=== PATIENT | female | born 1940 | race Caucasian/White ===

== ENCOUNTER 2020-12-14 12:04 | Emergency (ER) | payer MEDICARE, OTHER, SELFPAY ==
[2020-12-14] VITALS (7 sets, daily range): BP systolic 123–168; BP diastolic 71–76; PULSE 68–81; RESP 18–33; TEMP 36.8; O2SAT 83–97; BMI 34.3
--- NOTE | 2020-12-14 12:07 | ED_ITS ---
HPI - SOB/Dyspnea General Chief Complaint: Arrhythmia/Palpitations Stated Complaint: a-fib, sent by nick niño fatigue Time Seen by Provider: 12/14/20 12:07 Source: patient and family Mode of arrival: Ambulatory Limitations: no limitations History of Present Illness HPI Narrative: 80-year-old female nonsmoker with history of relatively recently diagnosed atrial fibrillation was placed on Xarelto about 10 days ago per her guide delegate. She presents today with a chief complaint of palpitations and increasing shortness of breath with minimal exertion. She does not use oxygen at home but states that over the past few days she has become profoundly short of breath with minimal exertion. She denies pain nor dizziness or lightheadedness. She denies any significant lower extremity swelling. She denies any obvious orthopnea. She has had no runny nose or sore throat. She denies any other medication or dietary change. She has had no fever or chills MD Complaint: shortness of breath Onset (ago): day(s) Severity: severe Consistency/Duration: progressively worsening Relieving factors: rest Exacerbating factors: exertion Associated symptoms: denies other symptoms Treatment prior to arrival: none Related Data Home oxygen amount: none Home Medications Medication Instructions Recorded Confirmed aspirin #0 04/21/17 atorvastatin [Lipitor] #0 04/21/17 flecainide 25 mg #0 04/21/17 levothyroxine [Synthroid] #0 04/21/17 losartan #0 04/21/17 magnesium amino acid chelate #0 04/21/17 metoprolol ta-hydrochlorothiaz #0 04/21/17 [Lopressor HCT] omeprazole #0 04/21/17 sumatriptan [Imitrex] #0 04/21/17 Allergies Allergy/AdvReac Type Severity Reaction Status Date / Time codeine [CODEINE] Allergy Unknown Verified 12/14/20 12:25 Review of Systems Constitutional Constitutional: Denies chills, Denies fatigue, Denies fever(s), Denies frequent falls, Denies lethargy and Denies weakness Eyes Eyes: Denies change in vision, Denies eye discharge, Denies irritation and Denies loss of vision ENT Ears, Nose, Mouth, and Throat: Denies change in voice, Denies dizziness, Denies neck pain, Denies sore throat and Denies throat swelling Cardiovascular Cardiovascular: Denies chest pain, Denies irregular heart rhythm, Denies lightheadedness, Denies palpitations, Reports dyspnea, Reports dyspnea on exertion and Denies orthopnea Respiratory Respiratory: Denies cough, Reports dyspnea, Reports dyspnea on exertion and Denies wheezing Gastrointestinal Gastrointestinal: Denies abdominal pain, Denies change in bowel habits, Denies diarrhea, Denies nausea and Denies vomiting Musculoskeletal Musculoskeletal: Denies neck pain and Denies numbness Integumentary/Breasts Skin/Breast: Denies pruritus, Denies erythema, Denies rash and Denies wounds Neurologic Neurologic: Denies behavioral changes, Denies confusion, Denies dizziness, Denies frequent falls, Denies loss of vision, Denies numbness and Denies weakness Psychiatric Psychiatric: Denies anxiety, Denies behavioral changes, Denies confusion, Denies depression, Denies homicidal ideation and Denies suicidal ideation Endocrine Endocrine: Denies fatigue, Denies flushing and Denies palpitations Hematologic/Lymphatic Hematologic/Lymphatic: Denies easy bruising Allergic/Immunologic Allergic/Immunologic: Denies urticaria, Denies throat swelling and Denies wheezing Patient History Social History Smoking Status: Never smoker Smoking Status: Never smoker alcohol intake frequency: 0-2 drinks per day Substance Use Type: does not use Exam Narrative Exam Narrative: GENERAL: [80] year old patient appears stated age. Well- nourished, well-developed patient, in mild distress. HEAD: Atraumatic. Normocephalic. EYES: Pupils equal round and reactive. Extraocular motions intact. No scleral icterus. No injection or drainage. ENT: Nose without bleeding, purulent drainage. Throat without erythema, tonsillar hypertrophy or exudate. Airway patent. NECK: Trachea midline. Non tender CARDIOVASCULAR: Regular rate and rhythm without murmurs, gallops, or rubs. RESPIRATORY: Faint crackles bilaterally, significant work of breathing with exertion, resolves after some time at rest. GASTROINTESTINAL: Abdomen soft, non-tender, nondistended. EXTREMITIES: No edema or joint tenderness. BACK: Nontender without deformity or crepitance. No flank tenderness. NEURO: AOx3. SKIN: No rash or erythema of visible areas Initial Vital Signs Initial Vital Signs: Vital Signs Temperature 98.3 F 12/14/20 12:15 Pulse Rate 72 12/14/20 12:15 Respiratory Rate 18 12/14/20 12:15 Blood Pressure 123/71 12/14/20 12:15 Pulse Oximetry 97 12/14/20 12:15 Course Orders Ordered: ED Orders 12/14/20 12:15 Basic Metabolic Panel Stat Complete Blood Count AUTO DIFF Stat D Dimer Stat Lactate (Lactic Acid) Stat Magnesium Stat NT-proBNP (BNP-Adult 18+) Stat Procalcitonin Stat Prothrombin Time INR Stat Troponin & CK Cardiac Panel Stat 12/14/20 12:16 Consult to Respiratory Therapy Evaluate & Treat EKG-12 Lead Stat 12/14/20 13:14 XR chest 2V Stat 12/14/20 15:15 COVID19 -Nasal swab/Pre-Proc Stat Discontinued Medications Furosemide (Furosemide 40 Mg/4 Ml Vial) 40 mg IV NOW ONE Stop: 12/14/20 13:52 Last Admin: 12/14/20 15:21 Dose: 40 mg Documented by: IBIS Reevaluation(s) Reevaluation #1: Minimal exertion causes patient to become visibly short of breath with significant work of breathing and pulse ox that drops to the low 80s with subsequent tachypnea and tachycardia. She improves after some time with rest Consultations Consultation #1: Discussion with Cardiology. We sure the opinion that she is not appropriate for cardioversion given lack of ischemic EKG changes, chest pain and duration of anticoagulation. Given the severity of her shortness of breath he recommends transferring the patient to [facility] where she can obtain appropriate diuresis and more importantly a JULIET to allow safe cardioversion as this patient is clearly intolerance of her condition. Consultation #2: hospitalist happy to accept at [facility] after discussion of patient presenting history, exam, labs and need for diagnostics not available at our facility Vital Signs Vital signs: Vital Signs - 8 hr 12/14/20 12:15 12/14/20 14:01 12/14/20 14:30 Temperature 98.3 F Pulse Rate 72 69 68 Respiratory Rate 18 22 24 Blood Pressure 123/71 Pulse Oximetry 97 96 93 12/14/20 15:00 12/14/20 15:09 12/14/20 15:30 Temperature Pulse Rate 69 71 71 Respiratory Rate 26 H 33 H 23 Blood Pressure 168/76 H Pulse Oximetry 83 L 91 94 12/14/20 16:00 Temperature Pulse Rate 81 Respiratory Rate 32 H Blood Pressure Pulse Oximetry 95 MDM - SOB/Dyspnea Lab Data Result diagrams: 12/14/20 12:15 12/14/20 12:15 Labs: Lab Results 12/14/20 12/14/20 12/14/20 Range/Units 12:15 12:15 12:15 WBC 8.1 (4.5-11.0) X10^3/uL RBC 4.07 (4.0-5.2) X10^6/uL Hgb 12.2 (12.0-16.0) g/dL Hct 36.5 (36-46) % MCV 89.9 (80-100) fL MCH 29.9 (26-34) PG MCHC 33.3 (30-36) % RDW 14.3 (11.6-14.8) % Plt Count 255 (150-400) X10^3/uL Neut % (Auto) 72.1 (50-75) % Lymph % (Auto) 16.3 L (25-40) % [place] % (Auto) 9.4 (3-14) % Eos % (Auto) 1.8 L (2-4) % Baso % (Auto) 0.4 (0-2) % Neut # (Auto) 5800 (8199-1672) /uL Lymph # (Auto) 1300 (7137-9864) /uL [place] # (Auto) 800 (0-900) /uL Eos # (Auto) 100 (0-450) /uL Baso # (Auto) 0 (0-100) /uL PT 18.9 H (10.1-12.7) SECONDS INR 1.7 H (0.9-1.3) D-Dimer 208 (<230) ng/mL Sodium 139 (137-145) mmol/L Potassium 3.9 (3.4-5.1) mmol/L Chloride 103 (98-107) mmol/L Carbon Dioxide 28 (22-32) mmol/L BUN 20 H (7-17) mg/dL Creatinine 0.73 (0.52-1.04) mg/dL Estimated GFR > 60.0 (>60) mL/min BUN/Creatinine Ratio 27.4 H (6-22) Glucose 100 (80-110) mg/dL Lactate (0.7-2.1) mmol/L Calcium 9.5 (8.4-10.2) mg/dL Magnesium 2.1 (1.6-2.3) mg/dL Total Creatine Kinase 60 (30-135) U/L CK-MB (CK-2) TNP CK-MB (CK-2) Rel Index TNP Troponin I 0.015 (0.01-0.034) ng/mL NT-Pro-B Natriuret Pep 4640 H (<450) pg/mL Procalcitonin 0.05 (<0.5) ng/mL SARS-CoV-2 (PCR) (Negative) 12/14/20 12/14/20 Range/Units 12:15 15:15 WBC (4.5-11.0) X10^3/uL RBC (4.0-5.2) X10^6/uL Hgb (12.0-16.0) g/dL Hct (36-46) % MCV (80-100) fL MCH (26-34) PG MCHC (30-36) % RDW (11.6-14.8) % Plt Count (150-400) X10^3/uL Neut % (Auto) (50-75) % Lymph % (Auto) (25-40) % [place] % (Auto) (3-14) % Eos % (Auto) (2-4) % Baso % (Auto) (0-2) % Neut # (Auto) (7078-4629) /uL Lymph # (Auto) (1564-5135) /uL [place] # (Auto) (0-900) /uL Eos # (Auto) (0-450) /uL Baso # (Auto) (0-100) /uL PT (10.1-12.7) SECONDS INR (0.9-1.3) D-Dimer (<230) ng/mL Sodium (137-145) mmol/L Potassium (3.4-5.1) mmol/L Chloride (98-107) mmol/L Carbon Dioxide (22-32) mmol/L BUN (7-17) mg/dL Creatinine (0.52-1.04) mg/dL Estimated GFR (>60) mL/min BUN/Creatinine Ratio (6-22) Glucose (80-110) mg/dL Lactate 0.9 (0.7-2.1) mmol/L Calcium (8.4-10.2) mg/dL Magnesium (1.6-2.3) mg/dL Total Creatine Kinase (30-135) U/L CK-MB (CK-2) CK-MB (CK-2) Rel Index Troponin I (0.01-0.034) ng/mL NT-Pro-B Natriuret Pep (<450) pg/mL Procalcitonin (<0.5) ng/mL SARS-CoV-2 (PCR) Negative (Negative) Urine Dip Bedside Urine Glucose Negative Bedside Urine Bilirubin - Negative Bedside Urine Ketone - Negative Urine Specific [place] 1.015 Bedside Urine Occult Blood - Negative Bedside Urine pH 6 Bedside Urine Protein - Negative Bedside Urine Urobilinogen - Negative Bedside Urine Nitrite - Negative Bedside Urine Leukocytes - Negative Esterase Imaging Data Chest x-ray: Radiologist's Impression: [address] [id number] ReportSigned Patient: Yvette Butler JMR#: [id number]: 9Acct:[id number]/Sex: 80 / FDate of Service: 12/14/20Loc: EDAccession Number: [id number] Procedure: XR chest 2V Ordering Provider: Silvino Ayala D.O. PROCEDURE: XR CHEST 2V INDICATIONS: SOB TECHNIQUE: 2 views of the chest were acquired. COMPARISON: None. FINDINGS: Surgical changes and devices: Left chest wall 2 lead cardiac pacing device. EKG leads project over the chest. Lungs and pleura: Increased interstitial markings in both lungs, right greater than left. No pleural effusions or pneumothorax. Mediastinum: Mediastinal contours are normal. Heart size is normal. Bones and chest wall: No suspicious bony abnormalities. Soft tissues appear unremarkable. IMPRESSION: Increased interstitial markings in both lungs, nonspecific but presumably a function of pulmonary edema. Dictated by: Santi Locke M.D. on 12/14/2020 at 13:27 Approved by: Santi Locke M.D. on 12/14/2020 at 13:29 Critical Care Time Critical Care Time Critical Care Time: Yes Total Critical Care Time: 30 Attestation: The high probability of a clinically significant, sudden or life threatening deterioration of the [CV] system(s) required my full and direct attention, in tervention and personal management. The aggregate critical care time was [30] minutes. This time is in addition to time spent performing reported procedures but includes the following: [x] Data Review and interpretation [x] Patient assessment and monitoring of vital signs [x] Documentation [x] Medication orders and management Discharge Plan Departure Patient Disposition: [facility] Clinical Impression: Acute CHF Qualifiers: Heart failure type: unspecified Qualified Code(s): I50.9 - Heart failure, unspecified Atrial flutter Qualifiers: Atrial flutter type: unspecified Qualified Code(s): I48.92 - Unspecified atrial flutter Prescriptions: No Action atorvastatin [Lipitor] 10 MG tablet Qty: 0 RF: 0 metoprolol ta-hydrochlorothiaz [Lopressor HCT] 50 MG/25 MG tablet Qty: 0 RF: 0 levothyroxine [Synthroid] 50 MCG tablet Qty: 0 RF: 0 flecainide 50 MG tablet 25 mg Qty: 0 RF: 0 losartan 50 MG tablet Qty: 0 RF: 0 omeprazole 20 MG capsule,delayed release(DR/EC) Qty: 0 RF: 0 magnesium amino acid chelate 100 MG tablet Qty: 0 RF: 0 aspirin 81 MG tablet,chewable Qty: 0 RF: 0 sumatriptan [Imitrex] 20 MG spray,non-aerosol Qty: 0 RF: 0 Referrals: Jag Bishop DO [Primary Care Provider] -
[2020-12-14 12:37] LABS: Add Manual Diff / Slide Review NO; Basophils Absolute Auto 0 /uL (0-100); Basophils Percent Auto 0.4 % (0-2); Eosinophils Absolute Auto 100 /uL (0-450); Eosinophils Percent Auto 1.8 % (2-4); Hematocrit 36.5 % (36-46); Hemoglobin 12.2 g/dL (12.0-16.0); Lymphocytes Absolute Auto 1300 /uL (1100-4500); Lymphocytes Percent Auto 16.3 % (25-40); Mean Corpuscular HGB Conc 33.3 % (30-36); Mean Corpuscular Hemoglobin 29.9 PG (26-34); Mean Corpuscular Volume 89.9 fL (80-100); Monocytes Absolute Auto 800 /uL (0-900); Monocytes Percent Auto 9.4 % (3-14); Neutrophils Absolute Auto 5800 /uL (1500-7000); Neutrophils Percent Auto 72.1 % (50-75); Platelet Count 255 X10^3/uL (150-400); Red Blood Cell Count 4.07 X10^6/uL (4.0-5.2); Red Cell Distribution Width 14.3 % (11.6-14.8); White Blood Cell Count 8.1 X10^3/uL (4.5-11.0)
[2020-12-14 12:41] LABS: Lactate (Lactic Acid) 0.9 mmol/L (0.7-2.1)
[2020-12-14 12:43] LABS: BUN Creatinine Ratio 27.4 (6-22); Blood Urea Nitrogen 20 mg/dL (7-17); Calcium 9.5 mg/dL (8.4-10.2); Carbon Dioxide 28 mmol/L (22-32); Chloride 103 mmol/L (98-107); Creatine Kinase 60 U/L (30-135); Estimated Glomerular Filt Rate > 60.0 mL/min (>60); Glucose 100 mg/dL (80-110); HEMOLYSIS < 15 (0-50); Magnesium 2.1 mg/dL (1.6-2.3); Potassium 3.9 mmol/L (3.4-5.1); Sodium 139 mmol/L (137-145)
[2020-12-14 12:45] LABS: INR 1.7 (0.9-1.3); Prothrombin Time 18.9 SECONDS (10.1-12.7)
[2020-12-14 12:48] LABS: D Dimer 208 ng/mL (<230)
[2020-12-14 12:54] LABS: NT-proBNP (BNP-Adult 18+) 4640 pg/mL (<450); Troponin I 0.015 ng/mL (0.01-0.034)
[2020-12-14 12:58] LABS: Procalcitonin 0.05 ng/mL (<0.5)
--- NOTE | 2020-12-14 13:14 | DI.RAD.S_ITS ---
PROCEDURE: XR CHEST 2V INDICATIONS: SOB TECHNIQUE: 2 views of the chest were acquired. COMPARISON: None. FINDINGS: Surgical changes and devices: Left chest wall 2 lead cardiac pacing device. EKG leads project over the chest. Lungs and pleura: Increased interstitial markings in both lungs, right greater than left. No pleural effusions or pneumothorax. Mediastinum: Mediastinal contours are normal. Heart size is normal. Bones and chest wall: No suspicious bony abnormalities. Soft tissues appear unremarkable. IMPRESSION: Increased interstitial markings in both lungs, nonspecific but presumably a function of pulmonary edema. Dictated by: Santi Locke M.D. on 12/14/2020 at 13:27 Approved by: Santi Locke M.D. on 12/14/2020 at 13:29
[2020-12-14] MEDS: FUROSEMIDE 40 MG/4 ML VIAL IV (15:21)
[2020-12-14 15:42] LABS: COVID19 -Nasal RAPID Negative (Negative)
== END 2020-12-14 16:45 | disposition short-term general hospital (02) ==
PROVIDERS: Emergency Provider Emergency Medicine; Family Provider Family Medicine; PCP Family Medicine
DX: I50.9 Heart failure, unspecified (principal); I48.92 Unspecified atrial flutter; R06.02 Shortness of breath; R00.0 Tachycardia, unspecified; Z20.828 Contact with and (suspected) exposure to other viral communicable diseases
CPT/HCPCS: 36415; 71046; 80048; 81003; 82550; 83605; 83735; 83880; 84145; 84484; 85025; 85379; 85610; 87635; 93005; 96374; 99284; 99291; C9803; J1940